=== PATIENT | female | born 1960 | race Caucasian/White ===

== ENCOUNTER → 2016-08-30 | Day surgery (SDC) | payer OTHER ==
[~2016-08-30] VITALS: Ht 172.7 cm; Wt 73.5 kg
--- NOTE | 2016-08-30 11:10 | Operative Report ---
Operative/Inv Procedure Report Surgery Date: 08/30/16 Name of Procedure: Excision of left arm and forearm lipomas 5 Pre-Operative Diagnosis: Left arm and forearm lipomas Post-Operative Diagnosis: Same Estimated Blood Loss: scant Surgeon/Can Dragger: BONG LOPES MD Anesthesia: local monitored anesthesi Specimens: Lipoma 3 cm lipoma 2.5 cm lipoma 1 cm x 3 Complications: None Condition: Stable to recovery room Operative Indication: Patient is a 56-year-old woman who presents for excision of multiple lipomas of the left arm and forearm. All risks benefits and alternatives of procedure were explained to patient is detail and she expressed understanding and agreement with the same. Operative/Procedure Note Note: Patient was taken to the operating room and placed in the supine position on operating table. Anesthesia was established by the anesthesia team. Perioperative antibiotic was given. Left arm was prepped and draped in the standard surgical fashion. The timeout was carried out. 3 linear incisions were made sequentially one on the forearm another one slightly medial to the elbow and the last one over the biceps area. 2 of the larger lipomas were excised from the forearm. One of them was 3.5 cm in diameter and another one 2.5 cm in diameter. The wound was irrigated and checked for hemostasis. Subcutaneous tissues were closed with interrupted 3-0 Vicryl sutures. Skin was closed with running 4-0 Monocryl subcuticular sutures. Steri-Strips and pressure dressings were applied. 3 additional small 1 cm lipomatous were excised from their other 2 incisions. Once again hemostasis was achieved using electrocautery. Cutaneous tissues were closed with interrupted 3-0 Vicryl sutures, and the skin was closed with 4-0 Monocryl subcutaneous cuticular sutures. Pressure dressings were applied over Steri-Strips. Rich bandage was wrapped slightly around the left arm and it was placed within the sling. The sponge and instrument counts were correct in the end of procedure. The patient tolerated the procedure well, was wakened up and taken to recovery room in stable condition. Findings: Multiple lipomas of the left arm and forearm Discharge Disposition: home
== END ==
LOC: STS 02:34
DX: D17.22 Benign lipomatous neoplasm of skin and subcutaneous tissue of left arm (principal); I10 Essential (primary) hypertension; J45.909 Unspecified asthma, uncomplicated
CPT/HCPCS: 88304; J0690; J2250